=== PATIENT | male | born 1965 | race Caucasian/White ===

== ENCOUNTER 2019-05-29 00:47 | Emergency (ER) | payer OTHER ==
[~2019-05-29] VITALS: Ht 185.4 cm; Wt 87.1 kg
[2019-05-29] MEDS ORDERED: KETOROLAC TROMETHAMINE INJ 60 MG/2 ML VIAL IM ONE (01:00)
[2019-05-29] MEDS ORDERED: CYCLOBENZAPRINE 10 MG TABLET PO ONE (01:00)
[2019-05-29] MEDS ORDERED: ACETAMINOPHEN 325 MG TABLET PO ONE (01:00)
[2019-05-29] MEDS ORDERED: ACETAMINOPHEN 325 MG TABLET ONE (01:05)
[2019-05-29] MEDS ORDERED: KETOROLAC TROMETHAMINE INJ 30 MG/ML VIAL ONE (01:05)
[2019-05-29] MEDS ORDERED: CYCLOBENZAPRINE 10 MG TABLET ONE (01:06)
--- NOTE | 2019-05-29 01:09 | NUR ---
seen and examined by
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
--- NOTE | 2019-05-29 01:32 | NUR ---
Patient sent to CT
--- NOTE | 2019-05-29 01:53 | NUR ---
pt returned from ct
--- NOTE | 2019-05-29 02:55 | NUR ---
Patient discharged to home in stable condition. Written and verbal after care instructions given. Patient verbalizes understanding of instruction.
[2019-05-29 02:59] VITALS: BP 132/69
== END 2019-05-29 03:02 | disposition home or self-care (01) ==
LOC: ER 00:49
DX: S16.1XXA Strain of muscle, fascia and tendon at neck level, initial encounter (principal); M25.511 Pain in right shoulder; X58.XXXA Exposure to other specified factors, initial encounter; Y93.89 Activity, other specified; Y92.89 Other specified places as the place of occurrence of the external cause; Y99.8 Other external cause status
CPT/HCPCS: 72125; 73030; 96372; 99284; J1885

== ENCOUNTER 2019-05-29 10:55 | Emergency (ER) | payer OTHER ==
[~2019-05-29] VITALS: Ht 185.4 cm; Wt 81.6 kg
--- NOTE | 2019-05-29 11:05 | NUR ---
PATIENT C/O RIGHT SHOULDER PAIN. A/OX3, BREATHING EVEN AND UNLABORED, NOS OB NOTED, KEPT COMFORTABLE. NEEDS ATTENDED.
[2019-05-29] MEDS ORDERED: ALBUTEROL FS 2.5 MG/3 ML VIAL.NEB NEB ONE (12:30)
[2019-05-29] MEDS ORDERED: KETOROLAC TROMETHAMINE INJ 60 MG/2 ML VIAL IM ONE (12:30)
[2019-05-29] MEDS ORDERED: DIAZEPAM 10 MG TABLET PO ONE (12:30)
[2019-05-29] MEDS ORDERED: IPRATROPIUM NEB FS 0.5 MG/2.5 ML AMPUL.NEB NEB ONE (12:30)
[2019-05-29] MEDS ORDERED: IPRATROPIUM NEB FS 0.5 MG/2.5 ML AMPUL.NEB ONE (12:32)
[2019-05-29] MEDS ORDERED: ALBUTEROL FS 2.5 MG/3 ML VIAL.NEB ONE (12:32)
[2019-05-29] MEDS ORDERED: DIAZEPAM 5 MG TABLET ONE (12:38)
[2019-05-29] MEDS ORDERED: KETOROLAC TROMETHAMINE INJ 30 MG/ML VIAL ONE (12:38)
--- NOTE | 2019-05-29 13:44 | NUR ---
Patient given written and verbal discharge instructions. Patient verbalizes understanding of instructions. Patient is ambulatory with steady gait. Refuses offer of detention placement. Patient given list of available shelters in surrounding area.
[2019-05-29 13:45] VITALS: BP 123/68
== END 2019-05-29 13:46 | disposition home or self-care (01) ==
LOC: ER 11:03
DX: M25.511 Pain in right shoulder (principal); J98.01 Acute bronchospasm; G89.29 Other chronic pain; F15.10 Other stimulant abuse, uncomplicated; F12.10 Cannabis abuse, uncomplicated; M62.838 Other muscle spasm; Z72.0 Tobacco use; Z59.0 Homelessness
CPT/HCPCS: 94640 ×2; 96372; 99284; 99406; J1885

== ENCOUNTER 2019-05-30 00:17 | Emergency (ER) | payer OTHER ==
[~2019-05-30] VITALS: Ht 172.7 cm; Wt 80.3 kg
[2019-05-30 00:25] VITALS: BP 134/65
[2019-05-30] MEDS ORDERED: IBUPROFEN 600 MG TABLET PO ONE ×2 (01:30→01:33)
== END 2019-05-30 02:46 | disposition home or self-care (01) ==
LOC: ER 00:22
DX: M25.511 Pain in right shoulder (principal); G89.29 Other chronic pain; Z59.0 Homelessness
CPT/HCPCS: 73030-TC

== ENCOUNTER 2019-06-02 11:40 | Emergency (ER) | payer OTHER ==
[~2019-06-02] VITALS: Ht 172.7 cm; Wt 80.3 kg
[2019-06-02 11:48] VITALS: BP 133/81
--- NOTE | 2019-06-02 12:17 | NUR ---
[facility] CALLED FOR JOB SITE SUPERVISOR/HOMELESS DISCHARGE PER KANIKA SCHUSTER
--- NOTE | 2019-06-02 12:21 | NUR ---
ORDERED LUNCH TRAY
--- NOTE | 2019-06-02 12:44 | NUR ---
Social service consult requested by MARIELY Medrano for homelessness. Pt. is a 54 year old male who has been coming to [facility] every other day with complaint of back pain. SW met with the pt. bedside. Pt. is alert and oriented x 3. Pt. appears disheveled. Pt. appeared to be drowsy at times and mumbling his words. SW had to ask pt. several times to repeat his answers. Pt. initially told SW he lives with roommates at [address] [place] [address] in [place]. However, pt. later stated that's his previous address and he lives on the streets and sleeps on the sidewalk. Pt drinks approximately 3 to 4 beers per day. Pt. smokes marijuana occasionally. SW offered pt. [facility] placement and pt. accepted. ALVARO gave pt. the following homeless resources: [facility] 4747-2932 [facility], [facility] located at [address] [facility] ; [facility], [address] [place] [address], [place] ; [facility], [address] [facility] ; [facility] Homeless Resource Directory which includes food stamps, transitional housing, showers and hot meals etc; Mental Health clinics such as [facility] ; [facility] ; Health clinics;[facility] and Alcohol treatment centers such as [facility], ; [facility] Substance Abuse Hotline and [facility] . Homeless Patient waiver form was signed by the pt. and placed in pt's chart. Pt. was provided with lunch and a TAP card. MARIELY Medrano has been updated with pt's discharge plan.
[2019-06-02] MEDS ORDERED: IBUPROFEN 600 MG TABLET PO ONE ×2 (12:49→13:00)
[2019-06-02] MEDS ORDERED: LIDOCAINE 5% (PATCH) 1 EA PATCH TP SCH (13:00)
== END 2019-06-02 13:10 | disposition home or self-care (01) ==
LOC: ER 11:42
DX: M62.830 Muscle spasm of back (principal); G89.29 Other chronic pain; M25.511 Pain in right shoulder; M54.2 Cervicalgia; G62.9 Polyneuropathy, unspecified; Z59.0 Homelessness

== ENCOUNTER 2021-04-15 13:43 | Emergency (ER) | payer OTHER ==
[~2021-04-15] VITALS: Ht 172.7 cm; Wt 77.1 kg
--- NOTE | 2021-04-15 13:51 | NUR ---
called for triage not in the waiting room
[2021-04-15 14:17] VITALS: BP 135/81
--- NOTE | 2021-04-15 15:29 | NUR ---
Patient discharged to home in stable condition. Written and verbal after care instructions given. Patient verbalizes understanding of instruction.
== END 2021-04-15 15:28 | disposition home or self-care (01) ==
LOC: ER 13:48
DX: F20.9 Schizophrenia, unspecified (principal); Z76.0 Encounter for issue of repeat prescription; Z59.00 Homelessness unspecified